=== PATIENT | female | born 1980 | race Caucasian/White ===

== ENCOUNTER 2020-07-12 17:55 | Emergency (ER) | payer SELFPAY ==
[~2020-07-12 17:55] MED LIST: Iopamidol 370 76% 100 ML VIAL ONE
[2020-07-12] MEDS ORDERED: Aspirin Chewable 81 MG TAB ONE (18:04)
[2020-07-12 18:13] LABS: #Basophils 0.1 thou/uL (0.0-0.2); #Eosinphils 0.3 thou/uL (0.0-0.7); #Lymphocytes 2.9 thou/uL (1.20-3.40); #Monocytes 0.7 thou/uL (0.11-0.59); #Neutrophils 5.5 thou/uL (1.40-6.50); %Eosinophils 3.1 % (0.0-10.0); %Monocytes 7.1 % (0.0-10.0); %Neutrophils 57.9 % (42.0-75.0); Hemoglobin 13.2 g/dL (12.0-16.0); Mean Corpuscular HGB CONC 31.2 g/dL (32.0-36.0); Mean Corpuscular Hemoglobin 27.5 pg (27.0-31.0); Mean Corpuscular Volume 88.2 fL (78.0-98.0); Mean Platelet Volume 7.7 fL (7.4-10.4); Platelet Count 279 thou/uL (130-400); RBC Distribution Width 12.1 % (11.5-14.5); Red Blood Cell (RBC) Count 4.81 mill/uL (4.20-5.40); White Blood Cell (WBC) Count 9.4 thou/uL (4.8-10.8)
[2020-07-12 18:27] LABS: ALT (SGPT) 29 U/L (8-55); AST (SGOT) 19 U/L (5-34); Albumin 4.4 g/dL (3.5-5.0); Alkaline Phosphatase 61 U/L (40-110); Anion Gap 17 mmol/L (10-20); BUN (Urea Nitrogen) 10 mg/dL (7.0-18.7); Bilirubin, Total 0.3 mg/dL (0.2-1.2); Calc. Creatinine Clearance 0 mL/min (70-130); Calcium 9.5 mg/dL (7.8-10.44); Carbon Dioxide 23 mmol/L (22-29); Chloride 104 mmol/L (98-107); Estimated GFR-MDRD 81; Globulin 3.2 g/dL (2.4-3.5); Glucose 96 mg/dL (70-105); Potassium 3.6 mmol/L (3.5-5.1); Protein, Total 7.6 g/dL (6.0-8.3); Sodium 140 mmol/L (136-145)
[2020-07-12] MEDS ORDERED: Ondansetron PF 4 MG/2 ML Vial ONE (18:45)
[2020-07-12] MEDS ORDERED: Acetaminophen 500 MG TAB ONE (19:41)
[2020-07-12] MEDS ORDERED: Ketorolac Tromethamine 30 MG/ML VIAL ONE (19:55)
--- NOTE | 2020-07-12 20:22 | CT ---
CT OF THE BRAIN AND CT ANGIO OF THE HEAD AND NECK 07/12/20 CT OF THE BRAIN: 07/12/[address] shows normal sized ventricles with no shift. No intracranial bleeding, mass or sign of acute stroke was found. Some minor asymmetric in the posterior limb of the right internal capsule was felt to be inconsequential. No edema was seen. The eason-white distinction seems normal. IMPRESSION: No definite acute findings. CT ANGIO OF THE HEAD: There is normal perfusion of the [place] by each internal carotid artery. There is good fill ing of the proximal segments of each anterior cerebral and middle cerebral artery. The left posterior cerebral artery is slightly larger than the right, but both fill adequately. Both vertebral arteries join to form a normal appearing basilar artery. Both the superior cerebellar and posterior cerebral s fill from the basilar as expected. Each PICA can be faintly seen. Thus, there is normal blood flow within the brain itself. Blood perfusion seems reasonably symmetrical side to side. CT ANGIO OF THE NECK: Both common carotid arteries fill normally. There is no sign of carotid artery stenosis or occlusion. The internal carotid arteries appear normal through the carotid siphon and into the base of the circ le of [place]. Each vertebral artery fills adequately with no sign of occlusion or dissection. The soft tissues of the neck showed no acute findings. The lung apices were clear. IMPRESSION: 1. No acute intracranial findings. 2. No evidence of significant stenosis or occlusion of the carotid or vertebral system. 3. No perfusion abnormalities of the major intracranial vessels were apparent. Preliminary report called to Annette in ER at 1956 on 07/12/20. POS: HOME
== END 2020-07-12 20:00 | disposition home or self-care (01) ==
LOC: BURERS 17:55
DX: R07.89 Other chest pain (principal); F41.9 Anxiety disorder, unspecified; Z87.891 Personal history of nicotine dependence
CPT/HCPCS: 36415; 70496; 70498; 80053; 84484; 85025; 85379; 93005; 96374; 96375; J1885; J2405; Q9967

== ENCOUNTER 2022-03-26 11:39 | Emergency (ER) | payer SELFPAY ==
[2022-03-26 12:00] LABS: #Basophils 0.1 thou/uL (0.0-0.2); #Eosinphils 0.3 thou/uL (0.0-0.7); #Lymphocytes 2.6 thou/uL (1.20-3.40); #Monocytes 0.4 thou/uL (0.11-0.59); #Neutrophils 3.7 thou/uL (1.40-6.50); %Basophils 1.5 % (0.0-1.0); %Eosinophils 4.2 % (0.0-10.0); %Lymphocytes 36.8 % (21.0-51.0); %Monocytes 5.4 % (0.0-10.0); %Neutrophils 52.3 % (42.0-75.0); Hemoglobin 14.8 g/dL (12.0-16.0); Mean Corpuscular HGB CONC 33.1 g/dL (32.0-36.0); Mean Corpuscular Hemoglobin 28.2 pg (27.0-31.0); Mean Corpuscular Volume 85.2 fL (78.0-98.0); Mean Platelet Volume 8.5 fL (7.4-10.4); Platelet Count 268 thou/uL (130-400); RBC Distribution Width 11.8 % (11.5-14.5); Red Blood Cell (RBC) Count 5.26 mill/uL (4.20-5.40); White Blood Cell (WBC) Count 7.1 thou/uL (4.8-10.8)
[2022-03-26 12:15] LABS: ALT (SGPT) 27 U/L (8-55); AST (SGOT) 20 U/L (5-34); Albumin 4.6 g/dL (3.5-5.0); Alkaline Phosphatase 57 U/L (40-110); Anion Gap 15 mmol/L (10-20); BUN (Urea Nitrogen) 12 mg/dL (7.0-18.7); Bilirubin, Total 0.5 mg/dL (0.2-1.2); Calc. Creatinine Clearance 0 mL/min (70-130); Calcium 9.6 mg/dL (7.8-10.44); Carbon Dioxide 26 mmol/L (22-29); Chloride 104 mmol/L (98-107); Globulin 3.4 g/dL (2.4-3.5); Glucose 112 mg/dL (70-105); Lipase 21 U/L (8-78); Potassium 3.8 mmol/L (3.5-5.1); Sodium 141 mmol/L (136-145)
[2022-03-26] MEDS ORDERED: Ondansetron PF 4 MG/2 ML Vial ONE (12:15)
[2022-03-26] MEDS ORDERED: Aspirin Chewable 81 MG TAB ONE (12:15)
[2022-03-26] MEDS ORDERED: Lorazepam 2 MG/ML VIAL ONE ×2 (12:15→13:14)
[2022-03-26] MEDS ORDERED: Lidocaine Viscous Sol 2% 15 ml UD Cup ONE ×2 (13:15)
[2022-03-26] MEDS ORDERED: Mag-Al Plus 1200 MG/1200 MG/120 MG/30 ML UDCUP ONE (13:16)
[2022-03-26 15:15] LABS: Troponin I Less than 0.010 ng/mL (< 0.028)
== END 2022-03-26 15:31 | disposition home or self-care (01) ==
LOC: BURERS 11:39
DX: R07.89 Other chest pain (principal); F41.9 Anxiety disorder, unspecified; Z87.891 Personal history of nicotine dependence
CPT/HCPCS: 71045; 80053; 83690; 84484; 85025; 85379; 93005; 96374; 96375; 96376; J2060; J2405

== ENCOUNTER 2022-06-15 09:03 | Emergency (ER) | payer SELFPAY ==
[2022-06-15] MEDS ORDERED: Iopamidol 370 76% 100 ML VIAL FS ONE (09:04)
[2022-06-15] MEDS ORDERED: Aspirin Chewable 81 MG TAB ONE (09:27)
[2022-06-15] MEDS ORDERED: Morphine 4 MG/ML VIAL ONE ×2 (09:27→10:14)
[2022-06-15] MEDS ORDERED: Morphine 2 MG/ML VIAL ONE (09:27)
[2022-06-15 09:29] LABS: #Basophils 0.1 thou/uL (0.0-0.2); #Eosinphils 0.3 thou/uL (0.0-0.7); #Lymphocytes 3.2 thou/uL (1.20-3.40); #Monocytes 0.5 thou/uL (0.11-0.59); #Neutrophils 3.8 thou/uL (1.40-6.50); %Basophils 1.1 % (0.0-1.0); %Eosinophils 4.2 % (0.0-10.0); %Lymphocytes 40.2 % (21.0-51.0); %Neutrophils 48.5 % (42.0-75.0); Hemoglobin 14.4 g/dL (12.0-16.0); Mean Corpuscular HGB CONC 34.3 g/dL (32.0-36.0); Mean Corpuscular Hemoglobin 28.7 pg (27.0-31.0); Mean Corpuscular Volume 83.6 fL (78.0-98.0); Platelet Count 282 thou/uL (130-400); Red Blood Cell (RBC) Count 5.03 mill/uL (4.20-5.40); White Blood Cell (WBC) Count 7.8 thou/uL (4.8-10.8)
[2022-06-15] MEDS ORDERED: Ondansetron PF 4 MG/2 ML Vial ONE (09:30)
[2022-06-15 09:44] LABS: ALT (SGPT) 36 U/L (8-55); AST (SGOT) 25 U/L (5-34); Albumin 4.6 g/dL (3.5-5.0); Alkaline Phosphatase 70 U/L (40-110); Anion Gap 13 mmol/L (10-20); BUN (Urea Nitrogen) 13 mg/dL (7.0-18.7); Bilirubin, Total 0.5 mg/dL (0.2-1.2); Calc. Creatinine Clearance 0 mL/min (70-130); Calcium 9.6 mg/dL (7.8-10.44); Carbon Dioxide 27 mmol/L (22-29); Chloride 105 mmol/L (98-107); Estimated GFR 102; Globulin 3.3 g/dL (2.4-3.5); Glucose 107 mg/dL (70-105); Protein, Total 7.9 g/dL (6.0-8.3); Sodium 141 mmol/L (136-145)
[2022-06-15] MEDS ORDERED: Lidocaine Viscous Sol 2% 15 ml UD Cup ONE ×2 (10:14→12:28)
[2022-06-15] MEDS ORDERED: Mag-Al Plus 1200 MG/1200 MG/120 MG/30 ML UDCUP ONE ×2 (10:14→12:28)
[2022-06-15 11:43] LABS: Troponin I Less than 0.010 ng/mL (< 0.028)
[2022-06-15] MEDS ORDERED: Sodium Chloride For Inhalation 0.9% 3 ML NEB ONE (12:13)
[2022-06-15] MEDS ORDERED: Famotidine/PF 20 mg/2ml Vial ONE (12:13)
== END 2022-06-15 12:35 | disposition home or self-care (01) ==
LOC: BURERS 09:03
DX: K29.70 Gastritis, unspecified, without bleeding (principal); R07.9 Chest pain, unspecified; Z87.891 Personal history of nicotine dependence
CPT/HCPCS: 71045; 71275; 74174; 80053; 83690; 83880; 84484; 85025; 85379; 93005; 96374; 96375; 96376; J2270; J2405; Q9967; S0028

== ENCOUNTER 2024-10-26 09:56 | Outpatient (CLI) | payer OTHER ==
[2024-10-26 10:41] LABS: #Basophils 0.1 thou/uL (0.0-0.2); #Eosinophils 0.4 thou/uL (0.0-0.7); #Lymphocytes 2.2 thou/uL (1.20-3.40); #Monocytes 0.4 thou/uL (0.11-0.59); #Neutrophils 3.3 thou/uL (1.40-6.50); %Basophils 1.5 % (0.0-1.0); %Eosinophils 5.7 % (0.0-10.0); %Lymphocytes 34.7 % (21.0-51.0); %Monocytes 6.2 % (0.0-10.0); %Neutrophils 51.9 % (42.0-75.0); Hematocrit 42.6 % (36.0-47.0); Hemoglobin 13.9 g/dL (12.0-16.0); Mean Corpuscular HGB CONC 32.6 g/dL (32.0-36.0); Mean Corpuscular Hemoglobin 26.5 pg (27.0-31.0); Mean Corpuscular Volume 81.4 fl (78.0-98.0); Platelet Count 277 10x3/uL (130-400); RBC Distribution Width 10.9 % (11.5-14.5); Red Blood Cell (RBC) Count 5.24 mill/uL (4.20-5.40); White Blood Cell (WBC) Count 6.4 10x3/uL (4.8-10.8)
[2024-10-26 10:55] LABS: ALT (SGPT) 29 U/L (8-55); AST (SGOT) 19 U/L (5-34); Albumin 4.3 g/dL (3.5-5.0); Alkaline Phosphatase 51 U/L (40-110); Anion Gap 12 mmol/L (10-20); BUN (Urea Nitrogen) 15 mg/dL (7.0-18.7); Bilirubin, Total 0.5 mg/dL (0.2-1.2); Calc. Creatinine Clearance 0 mL/min (70-130); Calcium 9.6 mg/dL (7.8-10.44); Carbon Dioxide 25 mmol/L (22-29); Chloride 105 mmol/L (98-107); Estimated GFR 100; Globulin 3.6 g/dL (2.4-3.5); Glucose 87 mg/dL (70-105); Potassium 3.8 mmol/L (3.5-5.1); Protein, Total 7.9 g/dL (6.0-8.3); Sodium 138 mmol/L (136-145)
[2024-10-26 11:06] LABS: Thyroid Stimulating Hormone 1.8043 uIU/mL (0.35-4.94)
[2024-10-26 17:38] LABS: Free T4 (Free Thyroxine) 1.06 ng/dL (0.70-1.48)
[2024-10-27 09:11] LABS: Complement-C4 15 mg/dL (15-57)
[2024-10-27 12:01] LABS: ANA Symphony (Qualitative) Negative (Negative); ANA Symphony (Quantitative) 0.4 Ratio (< 0.7 Negative); Mitochondrial Ab 1.2 U/mL (<4 Negative); dsDNA IgG Antibody 4.8 IU/mL (<10 Negative)
== END 2024-10-26 09:57 | disposition home or self-care (01) ==
LOC: BURLAB 09:56
PROVIDERS: ATTEND Nurse Practitioner Family
DX: M79.605 Pain in left leg (principal); L65.9 Nonscarring hair loss, unspecified
CPT/HCPCS: 36415; 80053; 83516; 84439; 84443; 85025; 86038; 86140; 86160; 86225; 86376; 86800